=== PATIENT | female | born 1955 | race American Indian/Alaskan Native ===

== ENCOUNTER 2018-02-03 18:07 | Inpatient (IN) | payer MEDICARE ==
[2018-02-03 20:54] LABS: Basophils % (Auto) 0.4 % (0.0-1.8); Eosinophils % (Auto) 0.2 % (0.0-4.3); Hematocrit 48.4 % (30.3-42.9); Mean Corpuscular HGB Conc 33 % (30-34); Mean Corpuscular Hemoglobin 31 pg (28-32); Mean Corpuscular Volume 94 fl (79-97); Monocytes # (Auto) 0.2 K/mm3 (0.0-0.8); Monocytes % (Auto) 2.4 % (0.0-7.3); Platelet Count 307 K/mm3 (140-440); Red Blood Count 5.15 M/mm3 (3.65-5.03); Red Cell Distribution Width 14.9 % (13.2-15.2)
--- NOTE | 2018-02-03 20:58 | Emergency Department Report ---
ED General Adult HPI - General Chief complaint: Weakness Stated complaint: DIFFICULTY BREATHING Time Seen by Provider: 02/03/18 20:51 Source: patient, EMS Mode of arrival: Stretcher Limitations: Physical Limitation - History of Present Illness Initial comments: Chief complaint numbness after a fall, patient is a poor historian no old medical records at this facility "[facility] she is here saying that she try to get out of bed this morning has slipped and fall at the bedside ground level, she does think she has occasional burning in her feet but after the fall she started having numbness from her back into her legs she also thinks she became nauseated. She has been having intermittent nausea vomiting for a week corner. She does drink she does smoke. She is here for evaluation of possible aspiration after slip and fall with history of nausea vomiting for a week with numbness after a fall pt also [place] moderate prob, ddimer ordered arrives awake and alert with stable airway here for evaluation of numbness status post fall couldn't get out of bed this morning possible history of stroke with history of hypertension and elevated BP of 200 systolic -: days(s), This morning Radiation: non-radiation Severity scale (0 -10): 3 Quality: burning Consistency: intermittent Associated Symptoms: denies other symptoms, confusion, other (numbness). denies : chest pain, cough, diaphoresis, fever/chills, headaches, loss of appetite, malaise, nausea/vomiting, rash, seizure, shortness of breath, syncope, weakness - Related Data Allergies Allergy/AdvReac Type Severity Reaction Status Date / Time No Known Allergies Allergy Verified 02/03/18 19:43 ED Review of Systems ROS: Stated complaint: DIFFICULTY BREATHING Other details as noted in HPI Comment: All other systems reviewed and negative Constitutional: malaise, weakness. denies: fever Eyes: denies: eye discharge, vision change ENT: denies: dental pain, hearing loss, epistaxis Respiratory: denies: shortness of breath, SOB with exertion, SOB at rest, stridor Cardiovascular: denies: chest pain, palpitations, dyspnea on exertion, orthopnea , edema, syncope, paroxysmal nocturnal dyspnea Gastrointestinal: denies: abdominal pain, nausea, vomiting, diarrhea, constipation, hematemesis, melena, hematochezia Neurological: weakness, numbness, abnormal gait Hematological/Lymphatic: denies: easy bruising, swollen glands ED Past Medical Hx - Past Medical History Previous Medical History?: Yes Hx Hypertension: Yes Hx CVA: Yes (Left sided weakness) Hx Congestive Heart Failure: Yes - Surgical History Past Surgical History?: Yes Hx Coronary Stent: Yes - Social History Smoking Status: Current Every Day Smoker Substance Use Type: None ED Physical Exam - General Limitations: Physical Limitation General appearance: alert, anxious - Head Head exam: Present: atraumatic, normocephalic, other (C collar placed given trauma and numbness) - Eye Eye exam: Present: PERRL, EOMI - ENT ENT exam: Present: normal exam, normal orophraynx - Neck Neck exam: Present: normal inspection. Absent: meningismus - Respiratory Respiratory exam: Present: normal lung sounds bilaterally. Absent: respiratory distress, wheezes, rales, chest wall tenderness, accessory muscle use, decreased breath sounds, prolonged expiratory - Cardiovascular Cardiovascular Exam: Present: regular rate, normal rhythm - GI/Abdominal GI/Abdominal exam: Present: soft. Absent: tenderness, guarding, rebound, rigid , mass, pulsatile mass - Extremities Exam Extremities exam: Present: normal inspection, other (no trauma). Absent: pedal edema, joint swelling - Back Exam Back exam: Present: muscle spasm, paraspinal tenderness. Absent: vertebral tenderness - Neurological Exam Neurological exam: Present: alert, oriented X3, motor sensory deficit ED Course Vital Signs 02/03/18 02/03/18 02/03/18 19:24 19:30 19:44 Temperature 97.8 F Pulse Rate 69 62 72 Respiratory 22 13 12 Rate Blood Pressure 203/116 Blood Pressure [Right] O2 Sat by Pulse 92 95 Oximetry 02/03/18 02/03/18 02/03/18 19:46 19:49 20:00 Temperature 97.8 F Pulse Rate 59 L 72 56 L Respiratory 16 12 16 Rate Blood Pressure 185/117 183/106 Blood Pressure 203/116 [Right] O2 Sat by Pulse 97 95 91 Oximetry 02/03/18 02/03/18 02/03/18 20:16 20:30 20:46 Temperature Pulse Rate 60 58 L 55 L Respiratory 15 18 12 Rate Blood Pressure 183/106 183/106 183/106 Blood Pressure [Right] O2 Sat by Pulse 97 96 97 Oximetry 02/03/18 21:00 Temperature Pulse Rate 74 Respiratory 18 Rate Blood Pressure 183/106 Blood Pressure [Right] O2 Sat by Pulse 97 Oximetry ED Medical Decision Making - Lab Data Result diagrams: 02/03/18 20:30 02/03/18 21:08 - Radiology Data Radiology results: report reviewed - Medical Decision Making Patient was placed in a c-collar the neck and spine were cleared given the trauma, there is just chronic changes, patient did have CT head given the nature the symptoms as does reveal chronic lacunar infarct with subacute cerebellar infarct case was discussed with hospitalist Dr. Ly will evaluate for CVA, patient did also have some nausea vomiting pus related to cerebellar ischemia or infarct this is an ED she thinks she may have had some ataxia with the fall, she also thinks that she possibly aspirated chest x-ray is negative at this time Dr. Ly will evaluate for admission for further evaluation of likely subacute CVA that was definitely greater than 4 hours old on patient's presentation to ED and she would not of been a interventional candidate given the age of the symptoms Critical care attestation.: If time is entered above; I have spent that time in minutes in the direct care of this critically ill patient, excluding procedure time. ED Disposition Clinical Impression: CVA (cerebral vascular accident) Disposition: DC-[id number] OP ADMIT IP TO THIS HOSP Is pt being admited?: Yes Condition: Stable Referrals: PRIMARY CARE, [Primary Care Provider] - 3-5 Days Time of Disposition: 23:27
--- NOTE | 2018-02-03 20:59 | XRay Report ---
FINAL REPORT PROCEDURE: XR CHEST 1V AP TECHNIQUE: Chest radiograph anteroposterior view. CPT 33228 HISTORY: Shortness of breath COMPARISON: No prior studies are available for comparison. FINDINGS: Heart: Heart is enlarged Mediastinum/Vessels: Normal. Lungs/Pleural space: There are no infiltrates, effusions or pneumothoraces.. Bony thorax: No acute osseous abnormality. Life support devices: None. IMPRESSION: There is no acute cardiopulmonary abnormality..
[2018-02-03] MEDS ORDERED: VITAMIN B-1 100 MG in NACL 0.9% 50 ML IV ONE (21:01)
[2018-02-03] MEDS ORDERED: NACL 0.9% 1000 ML 1,000 ML IV ONE (21:01)
[2018-02-03 21:04] LABS: BUN/Creatinine Ratio 15; Blood Urea Nitrogen 17 mg/dL (7-17); Calcium 9.8 mg/dL (8.4-10.2); Hemolysis Index 0
[2018-02-03 21:32] LABS: INR 0.9 (0.87-1.13)
[2018-02-03 21:33] LABS: Partial Thromboplastin Time 30.3 Sec. (24.2-36.6)
[2018-02-03 21:44] LABS: Alanine Aminotransferase 17 units/L (7-56); Albumin 4.4 g/dL (3.9-5); BUN/Creatinine Ratio 18; Blood Urea Nitrogen 18 mg/dL (7-17); Calcium 9.9 mg/dL (8.4-10.2); Hemolysis Index 17
--- NOTE | 2018-02-03 22:05 | Cat Scan Report ---
FINAL REPORT PROCEDURE: CT HEAD/BRAIN WO CON TECHNIQUE: Computerized tomography of the head was performed without contrast material. HISTORY: numbness COMPARISON: No prior studies are available for comparison. FINDINGS: Skull and scalp: Normal. Paranasal sinuses: Normal. Ventricles and subarachnoid spaces: There is moderate central and cortical atrophy. There is no hydrocephalus or asymmetry.. Cerebrum: No evidence of hemorrhage, acute infarction or mass. There is an old lacunar infarct defect in the right basal ganglia extending into the right periventricular white matter. There is an old lacunar infarct defect in the subcortical white matter of the left frontal lobe. There is chronic deep white matter ischemic gliosis bilaterally. Cerebellum and brainstem: There are multifocal areas of low-density in the right hemisphere the cerebellum suggesting subacute chronic infarction. Mass considered unlikely. Correlation with MRI may be helpful. There is no cerebellar hemorrhage.. Vasculature: There is calcified plaque in the cavernous portions of the internal carotid arteries.. Comments: None. IMPRESSION: There are multifocal areas of low-density in the right hemisphere the cerebellum suggesting subacute chronic infarction. Mass considered unlikely. Correlation with MRI may be helpful. There is no cerebellar hemorrhage. There is moderate central and cortical atrophy. There is no hydrocephalus or asymmetry.. There is no mass effect or midline shift. There is no herniation. There is an old lacunar infarct defect in the right basal ganglia extending into the right periventricular white matter. There is an old lacunar infarct defect in the subcortical white matter of the left frontal lobe. There is chronic deep white matter ischemic gliosis bilaterally.
--- NOTE | 2018-02-03 22:09 | Cat Scan Report ---
FINAL REPORT PROCEDURE: CT CERVICAL SPINE WO CON TECHNIQUE: Computerized tomography of the cervical spine was performed from the skull base to T1 without contrast material. HISTORY: numbness COMPARISON: No prior studies are available for comparison. FINDINGS: There are no fractures or malalignments. There are multilevel degenerative disc and facet changes. Facet joints are intact. There is no facet dislocation. Skull base and foramen magnum are intact. Cervical vertebrae are intact. The prevertebral soft tissues are normal in thickness. IMPRESSION: There are degenerative disc and facet changes. There is no fracture or malalignment..
--- NOTE | 2018-02-03 22:11 | Cat Scan Report ---
FINAL REPORT PROCEDURE: CT THORACIC SPINE WO CON TECHNIQUE: Computerized axial tomography of the thoracic spine was performed from C7 - L1 without contrast material. HISTORY: numbness COMPARISON: No prior studies are available for comparison. FINDINGS: There is mild kyphosis of the thoracic spine. There are no fractures or malalignments. There is mild multilevel degenerative disc change. Facet joints are intact. Prevertebral soft tissues are normal in thickness. Images of the upper abdomen demonstrate bilateral nephrolithiasis. IMPRESSION: There is no acute bony abnormality of the thoracic spine.
--- NOTE | 2018-02-03 22:15 | Cat Scan Report ---
FINAL REPORT PROCEDURE: CT LUMBAR SPINE WO CON TECHNIQUE: Computerized axial tomography of the lumbar spine was performed from T12 to the sacrum without contrast material. HISTORY: numbness COMPARISON: No prior studies are available for comparison. FINDINGS: There are no fractures or malalignments. There is mildly exaggerated lumbar lordosis. There is advanced degenerative loss of disc height at L5-S1 associated with bilateral facet hypertrophy. There is also facet hypertrophy at L4-5. The sacrum and sacroiliac joints are intact. Paraspinal soft tissues are normal in thickness. There are nonobstructing stones in the kidneys bilaterally. There is calcified plaque in the abdominal aorta. There is no aneurysm. IMPRESSION: There are chronic changes of the lumbar spine. There is no fracture or malalignment.
[2018-02-03] MEDS ORDERED: NORMODYNE IV ONE (23:12)
[2018-02-03] MEDS ORDERED: MORPHINE IV ONE (23:15)
[2018-02-03] MEDS ORDERED: ZOFRAN IV ONE (23:15)
[2018-02-03] MEDS ORDERED: DULCOLAX PR PRN (23:41)
[2018-02-03] MEDS ORDERED: MILK OF MAGNESIA PO PRN (23:41)
[2018-02-03] MEDS ORDERED: TYLENOL PO PRN (23:41)
[2018-02-03] MEDS ORDERED: PERCOCET 5/325 PO PRN (23:41)
[2018-02-03] MEDS ORDERED: ZOFRAN IV PRN (23:41)
[2018-02-03] MEDS ORDERED: REGLAN PO PRN (23:41)
[2018-02-03] MEDS ORDERED: APRESOLINE IV PRN (23:41)
[2018-02-03] MEDS ORDERED: SODIUM CHLORIDE FLUSH SYRINGE 10 ML IV PRN (23:41)
--- NOTE | 2018-02-03 23:48 | History and Physical Report ---
History of Present Illness Date of examination: 02/03/18 History of present illness: 62-year-old woman with history of CVA with left-sided weakness, hypertension, CHF, hyperlipidemia comes to emergency room because she was trying to get out of bed and fell. She complained of numbness all over her body. She she is unsure if the left side is weaker, states she feels weak all over. Today she states that she has difficulty swallowing liquid Review of systems Constitutional: no weight loss, chills Ears, eyes, nose, mouth and throat: no nasal congestion, no nasal discharge, no sinus pressure, no vision change, no red eye. Neck: No neck pain or rigidity. Cardiovascular: no chest pain, palpitations Respiratory: No shortness of breath, cough Gastrointestinal: no abdominal pain, hematochezia Genitourinary : no frequency , no hematuria Musculoskeletal: no joint swelling or muscle ache Integumentary: no rash, no pruritis Neurological: no parathesias, no numbness, no focal weakness Endocrine: no cold or heat intolerance, no polyuria or polydipsia Hematologic/Lymphatic: no easy bruising, no easy bleeding, no gland swelling Allergic/Immunologic: no urticaria, no angioedema. PAST MEDICAL HISTORY: CVA with left-sided weakness, hypertension, CHF, hyperlipidemia PAST SURGICAL HISTORY: [place] SOCIAL HISTORY: Smokes half a pack a day, social alcohol, no drugs FAMILY HISTORY: Hypertension Medications and Allergies Allergies Allergy/AdvReac Type Severity Reaction Status Date / Time No Known Allergies Allergy Verified 02/03/18 19:43 Home Medications Medication Instructions Recorded Confirmed Last Taken Type Carvedilol 25 mg PO BID 02/04/18 02/04/18 Unknown History Valsartan/Hydrochlorothiazide 1 each PO DAILY 02/04/18 02/04/18 Unknown History [Valsartan-Hctz 160-25 mg Tab] cloNIDine-TTS PATCH [Catapres-Tts 1 patch TD Q7D 02/04/18 02/04/18 02/02/18 History Patch] hydrALAZINE [Apresoline] 25 mg PO Q6HR 02/04/18 02/04/18 Unknown History traZODone [Desyrel] 50 mg PO QHS 02/04/18 02/04/18 Unknown History Active Meds: Active Medications Acetaminophen (Tylenol) 650 mg PO Q4H PRN PRN Reason: Pain, Mild (1-3) Aspirin (Aspirin) 325 mg PO QDAY OMI Atorvastatin Calcium (Lipitor) 40 mg PO QHS OMI Bisacodyl (Dulcolax) 10 mg CA QDAY PRN PRN Reason: Constipation Enoxaparin Sodium (Lovenox) 30 mg SUB-Q QDAY OMI Hydralazine HCl (Apresoline) 5 mg IV Q6H PRN PRN Reason: Keep SBP between 160-185 mm Hg Magnesium Hydroxide (Milk Of Magnesia) 30 ml PO Q4H PRN PRN Reason: Constipation Metoclopramide HCl (Reglan) 10 mg PO Q6H PRN PRN Reason: Nausea And Vomiting Ondansetron HCl (Zofran) 4 mg IV Q4H PRN PRN Reason: N/V unrelieved by Reglan Oxycodone/Acetaminophen (Percocet 5/325) 1 tab PO Q4H PRN PRN Reason: Pain, Moderate (4-6) Sodium Chloride (Sodium Chloride Flush Syringe 10 Ml) 10 ml INJ PRN PRN PRN Reason: LINE FLUSH Exam - Physical Exam Narrative exam: Gen. appearance: Patient lying in bed, no apparent distress HEENT: Normocephalic, atraumatic, pupils equally round and reactive to light, extraocular movement intact, and no sclericterus,. No JVD or thyromegaly or nodule,neck supple, no carotid bruit ,mucous membranes moist, no exudate or erythema Heart: S1, S2, regular rate and rhythm Lungs: Clear to auscultation bilaterally, breathing comfortable Abdomen: Positive bowel sounds, nontender, nondistended, no organomegaly Extremity: No edema, no cyanosis, clubbing Skin: No rash, nodules, warm, dry Neuro: Oriented 3, cranial nerves II-12 intact, speech is fluent, motor poor effort and sensory intact - Constitutional Vitals: Temp Pulse Resp BP Pulse Ox 97.8 F 74 18 183/106 97 02/03/18 19:49 02/03/18 21:00 02/03/18 21:00 02/03/18 21:00 02/03/18 21:00 Results - Labs CBC & Chem 7: 02/03/18 20:30 02/03/18 21:08 Labs: Abnormal lab results 06/07/1302/03/18 02/03/18 Range/Units 20:30 20:30 21:08 RBC 5.15 H (3.65-5.03) M/mm3 Hgb 16.0 H (10.1-14.3) gm/dl Hct 48.4 H (30.3-42.9) % Lymph % (Auto) 11.0 L (13.4-35.0) % Lymph # 1.0 L (1.2-5.4) K/mm3 Seg Neutrophils % 86.0 H (40.0-70.0) % Seg Neutrophils # 8.2 H (1.8-7.7) K/mm3 Chloride 97.6 L (98-107) mmol/L BUN 18 H (7-17) mg/dL Glucose 145 H 139 H (65-100) mg/dL - Imaging and Cardiology CT Scan - head: report reviewed Assessment and Plan CAT scan of the cervical, thoracic and lumbar spine reviewed Assessment Subacute CVA Dysphagia secondary to CVA hypertension CHF hyperlipidemia History of CVA with left-sided weakness Plan Admit to medicine Neurochecks,swallow screen Obtain MRI of the head, head and neck, echo Consult neurology, physical, emotional and speech therapy Start statin, aspirin DT prophylaxis
[2018-02-04 01:44] LABS: Bilirubin,Urine NEG (Negative); Blood,Urine NEG (Negative); Color,Urine Yellow (Yellow); Mucus,Urine 1+ /HPF
[2018-02-04] MEDS ORDERED: ASPIRIN PO SCH (10:00)
[2018-02-04] MEDS ORDERED: LOVENOX SUB-Q SCH ×2 (10:00)
--- NOTE | 2018-02-04 11:43 | Progress Note ---
Assessment and Plan - Patient Problems (1) Acute CVA (cerebrovascular accident) Current Visit: Yes Status: Acute Plan to address problem: Dr Marino's consult appreciated and he was graceful in reviewing MRI and CTA images with me. Patient has large infarct in R cerebellar region with a potential to cause cerebral edema and intracerebellar hemorrhage. Because of potential intracerebral bleed patient to be transferred to [place] and transfer initiated (2) HTN (hypertension) Current Visit: Yes Status: Chronic Qualifiers: Hypertension type: essential hypertension Qualified Code(s): I10 - Essential (primary) hypertension Plan to address problem: Cont antihypertensives (3) CHF (congestive heart failure) Current Visit: Yes Status: Chronic Qualifiers: Heart failure type: combined systolic and diastolic Plan to address problem: Echo (4) DVT prophylaxis Current Visit: Yes Status: Acute Plan to address problem: On Scd's and ASA Subjective Date of service: 02/04/18 Principal diagnosis: Acute CVA Interval history: c/o P aresthesias, slurred speech, dysphagia Objective - Constitutional Vitals: Vital Signs - 12hr 02/04/18 02/04/18 02/04/18 00:00 00:30 00:46 Temperature Pulse Rate 60 58 L 64 Respiratory 15 15 Rate Blood Pressure 198/115 197/101 203/102 O2 Sat by Pulse 92 91 Oximetry 02/04/18 02/04/18 02/04/18 01:00 02:01 02:43 Temperature Pulse Rate 59 L 61 Respiratory 12 20 Rate Blood Pressure 191/100 O2 Sat by Pulse 89 Oximetry 02/04/18 02/04/18 02/04/18 02:46 02:53 03:06 Temperature 98.3 F Pulse Rate 85 85 Respiratory 20 Rate Blood Pressure 191/109 191/109 O2 Sat by Pulse 97 Oximetry 02/04/18 02/04/18 03:43 03:46 Temperature 98.3 F Pulse Rate 95 H Respiratory 20 18 Rate Blood Pressure 148/99 O2 Sat by Pulse 97 Oximetry General appearance: Present: no acute distress, well-nourished - EENT Eyes: PERRL, EOM intact ENT: hearing intact, clear oral mucosa Ears: bilateral: normal - Neck Neck: supple, normal ROM - Respiratory Respiratory effort: normal Respiratory: bilateral: CTA - Breasts Breasts: normal - Cardiovascular Rhythm: regular Heart Sounds: Present: S1 & S2. Absent: gallop, rub Extremities: no ischemia, pulses intact, No edema, normal color, Full ROM - Gastrointestinal General gastrointestinal: Present: soft, non-tender, non-distended, normal bowel sounds - Genitourinary Female genitourinary: normal - Integumentary Integumentary: clear, warm, dry - Musculoskeletal Musculoskeletal: left sided weakness, generalized weakness, other (Ataxic) - Neurologic Neurologic: moves all extremities - Psychiatric Psychiatric: memory intact, appropriate mood/affect, intact judgment & insight - Allied health notes Allied health notes reviewed: nursing, PT, case management - Labs CBC & Chem 7: 02/03/18 20:30 02/03/18 21:08 Labs: Abnormal lab results 02/03/18 02/03/18 02/03/18 Range/Units 20:30 20:30 21:08 RBC 5.15 H (3.65-5.03) M/mm3 Hgb 16.0 H (10.1-14.3) gm/dl Hct 48.4 H (30.3-42.9) % Lymph % (Auto) 11.0 L (13.4-35.0) % Lymph # 1.0 L (1.2-5.4) K/mm3 Seg Neutrophils % 86.0 H (40.0-70.0) % Seg Neutrophils # 8.2 H (1.8-7.7) K/mm3 Chloride 97.6 L (98-107) mmol/L BUN 18 H (7-17) mg/dL Glucose 145 H 139 H (65-100) mg/dL
--- NOTE | 2018-02-04 12:42 | Cat Scan Report ---
CTA NECK: CTA HEAD: HISTORY: Cerebellar stroke seen on recent CT. TECHNIQUE: Helical CT following IV contrast. Sagittal and coronal reformatted images. 3D volume rendering technique. Stenosis was calculated using NASCET criteria. Comparison: CT head dated 02/03/18. CTA NECK: The visualized aortic arch, innominate artery and proximal bilateral subclavian arteries are widely patent with less than 20% stenosis. Within the right carotid system: There is less than 20% stenosis. Within the left carotid system: Minimal calcifications are identified at the left bifurcation. There is less than 20% stenosis. The cervical vertebral arteries are patent with less than 20% stenosis. The vertebral arteries appear codominant. CTA HEAD: There are mild to moderate calcifications in the distal ICAs. The arterial structures of the anterior circulation are patent with less than 20% stenosis. Within the vertebral basilar circulation, there appears to be occlusion of the distal right vertebral artery, distal left vertebral artery and a short segment of the proximal basilar artery. There is reconstitution of flow in the remainder of the basilar artery which is probably secondary to bilateral posterior communicating arteries. There is suggestion of mild narrowing of the distal basilar artery with stenosis estimated at 50%. The posterior cerebral arteries are widely patent with less than 20% stenosis. IMPRESSION: Unremarkable CTA of the neck. 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 Please see above.
--- NOTE | 2018-02-04 15:16 | Consultation ---
History of Present Illness Consult date: 02/04/18 Requesting physician: GRACE MALDONADO Reason for Consult: numbness feet and tingling hands, slurred speech, dysphagia Chief complaint: paresthesias, slurred speech, dysphagia History of present illness: This 62-year-old right-handed -[place]auritan[place] female says at 2 PM yesterday she slipped on the floor and fell backwards and then could not get up. She had numbness of her feet and ankles and tingling in her hands and vertigo. Last night she noted slurring of speech and difficulty swallowing. Vertigo has since resolved however. She takes 81 mg of aspirin at home and both Zocor 10 mg and Crestor 10 mg. She doesn't check her blood pressure home but says that at the industrial real estate agent's office visit it has been 120/80. 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 CT scan shows subacute right lateral cerebellar infarct measuring 3 cm but it seems to have a multifocal appearance. There appears to be an old left smaller lateral cerebellar infarct but adjacent to it immediately there may be a subacute new or infarct. There is a suggestion to me that the fourth ventricle might be shifted but that may just be a problem with head ankle. Higher up there is an old large possibly lacunar infarct extending all the way up to the right lateral ventricle from the right internal capsule and a small white matter lacune that is old in the left anterior frontal lobe as noted by the radiologist. Past History Past Medical History: CAD (stenting in the past), hypertension, hyperlipidemia, stroke (2000 with a little weakness on the left side). denies: diabetes Social history: smoking (0.5 packs per day, restarted cigarettes 6 months ago), other (on disability due to her heart condition). denies: alcohol abuse (1 or 2 drinks per week), prescription drug abuse, IV drug use (never illicit drugs.) Family history: diabetes (both parents), hypertension (both parents), stroke ( in her father, fatal a few months later), other (negative for epilepsy) Medications and Allergies Allergies Allergy/AdvReac Type Severity Reaction Status Date / Time No Known Allergies Allergy Verified 02/03/18 19:43 Home Medications Medication Instructions Recorded Confirmed Last Taken Type Carvedilol 25 mg PO BID 02/04/18 02/04/18 Unknown History Valsartan/Hydrochlorothiazide 1 each PO DAILY 02/04/18 02/04/18 Unknown History [Valsartan-Hctz 160-25 mg Tab] cloNIDine-TTS PATCH [Catapres-Tts 1 patch TD Q7D 02/04/18 02/04/18 02/02/18 History Patch] hydrALAZINE [Apresoline] 25 mg PO Q6HR 02/04/18 02/04/18 Unknown History traZODone [Desyrel] 50 mg PO QHS 02/04/18 02/04/18 Unknown History Active Meds: Active Medications Acetaminophen (Tylenol) 650 mg PO Q4H PRN PRN Reason: Pain, Mild (1-3) Aspirin (Aspirin) 325 mg PO QDAY [facility] Last Admin: 02/04/18 12:44 Dose: Not Given Atorvastatin Calcium (Lipitor) 40 mg PO QHS [facility] Bisacodyl (Dulcolax) 10 mg [place] QDAY PRN PRN Reason: Constipation Enoxaparin Sodium (Lovenox) 40 mg SUB-Q QDAY@1000 OMI Last Admin: 02/04/18 12:48 Dose: 40 mg Hydralazine HCl (Apresoline) 5 mg IV Q6H PRN PRN Reason: Keep SBP between 160-185 mm Hg Last Admin: 02/04/18 03:06 Dose: 5 mg Magnesium Hydroxide (Milk Of Magnesia) 30 ml PO Q4H PRN PRN Reason: Constipation Metoclopramide HCl (Reglan) 10 mg PO Q6H PRN PRN Reason: Nausea And Vomiting Last Admin: 02/04/18 02:43 Dose: 10 mg Ondansetron HCl (Zofran) 4 mg IV Q4H PRN PRN Reason: N/V unrelieved by Reglan Last Admin: 02/04/18 10:14 Dose: 4 mg Oxycodone/Acetaminophen (Percocet 5/325) 1 tab PO Q4H PRN PRN Reason: Pain, Moderate (4-6) Last Admin: 02/04/18 02:43 Dose: 1 tab Sodium Chloride (Sodium Chloride Flush Syringe 10 Ml) 10 ml IV PRN PRN PRN Reason: LINE FLUSH Review of Systems All systems: negative (headache for a week prior to yesterday without nausea or photophobia. Dizziness prior to yesterday. Some snoring and was prescribed CPAP in January 2017 but never picked it up. Memory is okay.) Physical Examination - Vital Signs Vital Signs: Vital Signs Pulse Resp 69 22 02/03/18 19:24 02/03/18 19:24 - Physical Exam Narrative exam: General Appearance: well developed but borderline overweight (per BMI) early 60s -[place]itan[place] female with dysarthria and wet speech requiring her to use Yankauer suctioning. HEENT: atraumatic, normocephalic; no bruits, 2+ Radha without soreness or induration or enlargement, sclerae nonicteric. Oropharynx pink and moist but with excess saliva in the pharynx. Neck: supple, no bruits. Heart: no murmur or extra sounds. Extremities: no clubbing, cyanosis or edema. No posterior tibial or dorsalis pedis pulses palpable on either side. Neurologic Exam: Mental Status: Awake, alert, oriented X 3, speech is dysarthric and wet sounding , names pen and point of pen, and abstracts well. Names President but calls the Physical Aerodynamicist [place] instead of [place], serial 7's intact, no right-left confusion, gets 3 of 3 objects at 3 minutes, spells WORLD backwards correctly. Cranial Nerves: gabriel full, cannot see discs due to prominent vertical nystagmus, PERRLA, EOMs full with primary gaze vertical nystagmus and horizontal diplopia to all gazes, facial sensation intact to pinprick and light touch, no facial weakness, Ramos is midline, palate rises symmetrically to phonation but gags are only slightly positive, shoulder shrug is 5 X 2, tongue protrudes midline. Cerebellar: finger to nose dysmetric on the right but cannot do on the left due to dystonic posturing, heel to delgado is okay bilaterally but requires me to position the feet due to spasticity. Sensory: light touch seems diminished in the hands, pinprick and vibrations are intact. Double simultaneous stimulation is intact. Motor Exam Upper Extremities: no drift or pronation on the right but cannot lift the left well and has dystonic and flinging movements on the left, Susan slow on the right and cannot even attempt on the left due to finger flexion contractures, health tech are 4 X 2, tone is increased on the left. No atrophy or fasciculations are noted visually. Motor Exam Lower Extremities: Moderate left leg lag, quadriceps are 4- right and 5- left, anterior tibials are 5 right and 4 left, and gastrocnemius are 5 right and 4+ left. Susan are very slow bilaterally. Tone is increased bilaterally especially on the left. No atrophy or fasciculations are noted visually. Reflexes: Palmomental, snout and jaw jerk are negative. Triceps are 1+ right and 2 left, biceps are 2 right and 2+ left and brachioradialis are 1+ right and 2 left bilaterally. Jen's is negative bilaterally. Knee jerks are 2+ to 3 right and 3+ left and ankle jerks are 0 bilaterally even with reinforcement and without clonus. Toes are upgoing bilaterally to Babinski testing. Results - Laboratory Findings CBC and BMP: 02/03/18 20:30 02/03/18 21:08 Abnormal Lab Findings: Abnormal Labs 02/03/18 02/03/18 02/03/18 20:30 20:30 21:08 RBC 5.15 H Hgb 16.0 H Hct 48.4 H Lymph % (Auto) 11.0 L Lymph # 1.0 L Seg Neutrophils % 86.0 H Seg Neutrophils # 8.2 H Chloride 97.6 L BUN 18 H Glucose 145 H 139 H Assessment and Plan Impression: 1. Cerebellar infarct 2. Possible brainstem infarct Plan: 1. MRI brain noncontrast. 2. If CVA in right cerebellum is larger than the 3 cm I measured, or possibly if a subacute left cerebellar infarct is found that threatens the brainstem, she will need transfer to a facility that has a neurosurgeon, such as [facility] or [facility], or [facility]. I explained this to her. 3. I explained to her that she may need a PEG tube. She is familiar with it since her mother had one. 4. I told her to try to signal the nurse if she feels sudden headache or nausea. The nurse will be checking on her regularly to monitor self suctioning too. 45 minutes spent with this patient including review of 100s of CT and CT angiogram and later MRI images. Thank you for an interesting consultation on this unfortunate early 60s lady. Later reviewed MRI showing 37 X 27X 20 mm right cerebellar infarct which is multifocal but poses significant risk of becoming larger from poststroke edema so I recommend transfer to a facility with a neurosurgeon in case surgery is required. MRI also shows older but still diffusion positive embolic appearing infarcts in left occipital lobe and mid frontal white matter and right frontal white matter without ADC change. The right cerebellar CVA still shows slight ADC darkness suggesting if it more acute. Should have echo with bubbles and ideally Valsalva bearing down for 10 seconds, and later 30 day event monitoring for PAF. May need a KAREN.
--- NOTE | 2018-02-04 16:23 | Consultation ---
History of Present Illness Consult date: 02/04/18 Requesting physician: MIKHAIL CAVAZOS Reason for consult: other (Acute CVA) History of present illness: 62-year-old woman with history of CVA with left-sided weakness, hypertension, CHF, hyperlipidemia comes to emergency room because she was trying to get out of bed and fell. She complained of numbness all over her body. She she is unsure if the left side is weaker, states she feels weak all over. Today she states that she has difficulty swallowing liquid. Able to self suction. Was on the medical floor with telemetry monitoring, asked by Neurology to see the patient and facilitate transfer to the ICU for closer neurologic monitoring , based on his review of the CTscan and MRI which showed subacute right lateral cerebellar infarct measuring 3 cm but it seems to have a multifocal appearance. There is concern that the large infarct in R cerebellar region has a potential to cause cerebral edema and intracerebellar hemorrhage. Because of the potential intracerebral bleed patient was transferred to the ICU for closer monitoring Patient was seen and examined, vitals, labs, medications, chart and imaging reviewed. Review of systems Constitutional: no weight loss, chills Ears, eyes, nose, mouth and throat: no nasal congestion, no nasal discharge, no sinus pressure, no vision change, no red eye. Neck: No neck pain or rigidity. Cardiovascular: no chest pain, palpitations Respiratory: No shortness of breath, cough Gastrointestinal: no abdominal pain, hematochezia Genitourinary : no frequency , no hematuria Musculoskeletal: no joint swelling or muscle ache Integumentary: no rash, no pruritis Neurological: no parathesias, no numbness, no focal weakness Endocrine: no cold or heat intolerance, no polyuria or polydipsia Hematologic/Lymphatic: no easy bruising, no easy bleeding, no gland swelling Allergic/Immunologic: no urticaria, no angioedema. Past History Past Medical History: CAD (stenting in the past), hypertension, hyperlipidemia, stroke (2000 with a little weakness on the left side). denies: diabetes Social history: smoking (0.5 packs per day, restarted cigarettes 6 months ago), other (on disability due to her heart condition). denies: alcohol abuse (1 or 2 drinks per week), prescription drug abuse, IV drug use (never illicit drugs.) Family history: diabetes (both parents), hypertension (both parents), stroke ( in her father, fatal a few months later), other (negative for epilepsy) Medications and Allergies Allergies Allergy/AdvReac Type Severity Reaction Status Date / Time No Known Allergies Allergy Verified 02/03/18 19:43 Home Medications Medication Instructions Recorded Confirmed Last Taken Type Carvedilol 25 mg PO BID 02/04/18 02/04/18 Unknown History Valsartan/Hydrochlorothiazide 1 each PO DAILY 02/04/18 02/04/18 Unknown History [Valsartan-Hctz 160-25 mg Tab] cloNIDine-TTS PATCH [Catapres-Tts 1 patch TD Q7D 02/04/18 02/04/18 02/02/18 History Patch] hydrALAZINE [Apresoline] 25 mg PO Q6HR 02/04/18 02/04/18 Unknown History traZODone [Desyrel] 50 mg PO QHS 02/04/18 02/04/18 Unknown History Active Meds: Active Medications Acetaminophen (Tylenol) 650 mg PO Q4H PRN PRN Reason: Pain, Mild (1-3) Aspirin (Aspirin) 325 mg PO QDAY [facility] Last Admin: 02/04/18 12:44 Dose: Not Given Atorvastatin Calcium (Lipitor) 40 mg PO QHS OMI Bisacodyl (Dulcolax) 10 mg [place] QDAY PRN PRN Reason: Constipation Enoxaparin Sodium (Lovenox) 40 mg SUB-Q QDAY@1000 OMI Last Admin: 02/04/18 12:48 Dose: 40 mg Hydralazine HCl (Apresoline) 5 mg IV Q6H PRN PRN Reason: Keep SBP between 160-185 mm Hg Last Admin: 02/04/18 03:06 Dose: 5 mg Magnesium Hydroxide (Milk Of Magnesia) 30 ml PO Q4H PRN PRN Reason: Constipation Metoclopramide HCl (Reglan) 10 mg PO Q6H PRN PRN Reason: Nausea And Vomiting Last Admin: 02/04/18 02:43 Dose: 10 mg Ondansetron HCl (Zofran) 4 mg IV Q4H PRN PRN Reason: N/V unrelieved by Reglan Last Admin: 02/04/18 10:14 Dose: 4 mg Oxycodone/Acetaminophen (Percocet 5/325) 1 tab PO Q4H PRN PRN Reason: Pain, Moderate (4-6) Last Admin: 02/04/18 02:43 Dose: 1 tab Sodium Chloride (Sodium Chloride Flush Syringe 10 Ml) 10 ml IV PRN PRN PRN Reason: LINE FLUSH Physical Examination Vital signs: Vital Signs Pulse Resp 69 22 02/03/18 19:24 02/03/18 19:24 Reviewed General appearance: appears uncomfortable, other (speeech has smiley, nasal quality and is garbled) Eyes: non-icteric, other (nystagmus) ENT: oropharynx moist Neck: supple, no lymphadenopathy, no JVD Effort: mildly labored Ascultation: Bilateral: rhonchi Cardiovascular: regular rate and rhythm, other (tachycardia, S1,S2, no murmurs, gallops or rubs) Gastrointestinal: normoactive bowel sounds, hypoactive bowel sounds, soft, non- tender Integumentary: normal Extremities: no cyanosis, no edema, pulses normal, no ischemia or petechiae Musculoskeletal: no deformities normal mental status, pupils equal and round anxious Results - Laboratory Findings CBC and BMP: 02/03/18 20:30 02/03/18 21:08 PT/INR, D-dimer PT 12.6 Sec. (12.2-14.9) 02/03/18 21:08 INR 0.90 (0.87-1.13) 02/03/18 21:08 D-Dimer < 135 ng/mlDDU (0-234) 02/03/18 21:08 Abnormal lab findings: Abnormal Labs 02/03/18 02/03/18 02/03/18 20:30 20:30 21:08 RBC 5.15 H Hgb 16.0 H Hct 48.4 H Lymph % (Auto) 11.0 L Lymph # 1.0 L Seg Neutrophils % 86.0 H Seg Neutrophils # 8.2 H Chloride 97.6 L BUN 18 H Glucose 145 H 139 H - Diagnostic Findings Additional studies: MRI report reviewed. Assessment and Plan Acute CVA Hypertension h/o Old CVA Tobacco abuse disorder -Admit ICU, frequent neuro checks -Discussed extensively with Neurologist, at this time, with outr limited access to neurosurgery, patient is better served in a Neuro ICU where she can get needed interventions -NPO -Place small bowel feeding tube for medications and tube feeding -Will need echocardiogram -Blood pressure control -Carotid venous dopplers -Secondary stroke prophylaxis - Aspiration precautions -Speech and swallow evaluation -Supplemental oxygen to keep O2 sats>90% -Fasting lipid profile, TSH - SCDs for VTE prophylaxis -Nicotine withdrawal precautions Discussed with the extensively at the bedside. Updated him re care plan and the need for transfer to a center with Neuro ICU and neurosurgical capabilities. Critical care time in (mins) excluding proc time.: 45 Critical care attestation.: If time is entered above; I have spent that time in minutes in the direct care of this critically ill patient, excluding procedure time.
[2018-02-04 16:54] LABS: Chol/HDL Ratio 5.2 %
--- NOTE | 2018-02-04 16:59 | Magnetic Resonance Report ---
MRI BRAIN WITHOUT CONTRAST: 02/04/18 CLINICAL: Stroke. COMPARISON: 02/03/18 CT head TECHNIQUE: Axial diffusion, T1, T2, FLAIR, gradient echo T2*, and sagittal T1 sequences on a 1.5 Ro magnet. FINDINGS: The vesicles sulci are normal for age. Numerous foci of restricted diffusion involving the right superior and inferior right cerebellum. There is mild associated mass effect but no hemorrhage in the right cerebellum. A couple of tiny foci of restricted diffusion in the left cerebellum and numerous tiny chronic lacunar infarcts of the left cerebellum. No left cerebellar hemorrhage. No supratentorial restricted diffusion extensive bilateral deep white matter hyperintensities on FLAIR and T2. A large right basal ganglia chronic infarct and atrophy of the right midbrain. Normal pituitary and optic chiasm. The brainstem and cerebellum are normal. Increased signal in the vertebral and basilar arteries but otherwise intact flow voids. Normal sinuses. The orbits, and soft tissues are normal. Normal calvarium and skull base. IMPRESSION: 1. Subacute nonhemorrhagic bilateral cerebellar infarcts, right worse than left. 2. Numerous chronic left cerebellar lacunar infarcts. 3. A large chronic right basal ganglia infarct and evidence of blood layering in degeneration in the brainstem. 4. Extensive bilateral chronic white matter microangiopathy.
[2018-02-04] MEDS ORDERED: CATAPRES-TTS PATCH TD SCH (17:00)
[2018-02-04] MEDS ORDERED: HCTZ PO SCH (17:00)
[2018-02-04] MEDS ORDERED: HYDROCHLOROTHIAZIDE PO SCH (17:00)
[2018-02-04] MEDS ORDERED: DIOVAN PO SCH (17:00)
[2018-02-04] MEDS ORDERED: VALSARTAN PO SCH (17:00)
[2018-02-04] MEDS: APRESOLINE PO SCH (18:04)
[2018-02-04] MEDS ORDERED: MORPHINE IV ONE (18:42)
[2018-02-04] MEDS ORDERED: COREG PO SCH (22:00)
[2018-02-04] MEDS ORDERED: HEPARIN SUB-Q SCH (22:00)
[2018-02-04] MEDS ORDERED: DESYREL PO SCH (22:00)
[2018-02-05 00:36] VITALS: BP 130/100
[2018-02-05] MEDS: APRESOLINE PO SCH (00:36)
== END 2018-02-05 01:21 | disposition short-term general hospital (02) | DRG 65 ==
LOC: ED 18:07 → 4A 23:41 → CC1 02-04 16:07
PROVIDERS: ADMIT Internal Medicine; ATTEND Internal Medicine
DX: I63.9 Cerebral infarction, unspecified (principal); I69.354 Hemiplegia and hemiparesis following cerebral infarction affecting left non-dominant side; I50.42 Chronic combined systolic (congestive) and diastolic (congestive) heart failure; R13.10 Dysphagia, unspecified; F17.210 Nicotine dependence, cigarettes, uncomplicated; I11.0 Hypertensive heart disease with heart failure; E78.5 Hyperlipidemia, unspecified; Z82.49 Family history of ischemic heart disease and other diseases of the circulatory system; Z95.5 Presence of coronary angioplasty implant and graft; Z82.3 Family history of stroke; Z83.3 Family history of diabetes mellitus; Z79.899 Other long term (current) drug therapy
CPT/HCPCS: 36415; 70450; 70496; 70498; 70551; 71045; 72125; 72128; 72131; 80048; 80053; 80061; 81001; 83735; 84484; 85025; 85379; 85610; 85730; 93005; 93010; G8978-GP; G8979-GP; G8996-GN; G8997-GN; J0360; J1644; J1650; J2270; J2405; J3411; J7030; Q9967